=== PATIENT | male | born 1990 | race Caucasian/White ===

== ENCOUNTER 2018-03-04 13:20 | Emergency (ER) | END 2018-03-04 15:29 | disposition home or self-care (01) ==

== ENCOUNTER 2018-08-04 01:28 | Emergency (ER) | payer SELFPAY ==
[~2018-08-04] VITALS: Ht 172.7 cm; Wt 91.6 kg
[2018-08-04 01:34] VITALS: Ht 172.7 cm; Wt 91.6 kg
--- NOTE | 2018-08-04 02:52 | ERD ---
ER Documentation Chief Complaint Chief Complaint SOB ST x 10 days HPI This 28-year-old male who presents for evaluation of dysphagia for about the last 10 days. He states that sometimes he wakes up with a lot of saliva, and this gives the sensation of shortness of breath. States that he had bronchitis when he was younger, otherwise has not had any respiratory distress. He has no fever, he has not ingested any foreign bodies. ROS All systems reviewed and are negative except as per history of present illness. Allergies Allergies: Coded Allergies: No Known Allergy (Unverified , 07/26/12) PMhx/Soc Medical and Surgical Hx: pt denies Medical Hx, pt denies Surgical Hx History of Surgery: No Anesthesia Reaction: No Hx Neurological Disorder: No Hx Respiratory Disorders: No Hx Cardiac Disorders: No Hx Psychiatric Problems: No Hx Miscellaneous Medical Probl: No Hx Alcohol Use: No Hx Substance Use: No Hx Tobacco Use: No Smoking Status: Never smoker Physical Exam Vitals Vital Signs Date Temp Pulse Resp B/P (MAP) Pulse Ox O2 O2 Flow FiO2 Time Delivery Rate 08/04/18 98.0 81 20 137/76 98 01:34 (96) Physical Exam Const: No acute distress, afebrile, nontoxic Head: Atraumatic Eyes: Normal Conjunctiva, pupils equal round reactive to light ENT: Normal External Ears, Nose and Mouth. Oropharynx is clear Neck: Full range of motion. No meningismus. Resp: Clear to auscultation bilaterally, breath sounds equal, no wheezes rales or rhonchi Cardio: Regular rate and rhythm, no murmurs Abd: Soft, non tender, non distended. Normal bowel sounds Skin: No petechiae or rashes Back: No midline or flank tenderness Ext: No cyanosis, or edema Neur: Awake and alert Psych: Normal Mood and Affect Procedures/MDM Chest X-ray 1V Interpreted by me: Soft Tissue: No acute abnormalities Bones: No acute abnormalities Mediastinum/Cardiac Silhouette/Lungs: No acute abnormalities X-ray Soft Tissue Neck 2V Interpreted by me: Bones: No fracture Air spaces: Normal Foreign body: None This is a 28-year-old male who presents for evaluation of dysphagia for about the last 20 days. Exam reveals a well-appearing nontoxic male, in no acute distress. He has no signs of infection on exam, his x-rays were negative for any acute findings, given the prolonged nature of his symptoms, I did recommend he follow-up with PMD as soon as possible, as he may need to be evaluated further with endoscopy should the symptoms persist, the patient was agreeable to this, at discharge she was in no acute distress Departure Diagnosis: Primary Impression: Dysphagia Dysphagia type: unspecified Qualified Codes: R13.10 - Dysphagia, unspecified Condition: Stable WHITNEY ANDRES MD Aug 04, 2018 02:52
[2018-08-04 03:20] VITALS: BP 120/85; PULSE 82; RESP 20
== END 2018-08-04 03:30 | disposition home or self-care (01) ==
LOC: E/R 01:28
DX: R13.10 Dysphagia, unspecified (principal)
CPT/HCPCS: 70360; 71045